=== PATIENT | male | born 1950 | race Caucasian/White ===

== ENCOUNTER 2017-01-29 14:54 | Emergency (ER) | payer MEDICARE | END 2017-01-29 17:05 | disposition home or self-care (01) | LOC: ER1 14:54 | DX: S86.812A Strain of other muscle(s) and tendon(s) at lower leg level, left leg, initial encounter (principal); R60.0 Localized edema; I10 Essential (primary) hypertension; E07.9 Disorder of thyroid, unspecified; Z86.718 Personal history of other venous thrombosis and embolism; Z88.1 Allergy status to other antibiotic agents; W19.XXXA Unspecified fall, initial encounter; Z79.899 Other long term (current) drug therapy | CPT/HCPCS: 73564; 93971; 99283 ==

== ENCOUNTER → 2021-03-20 | Outpatient (CLI) | payer MEDICARE ==
[~2021-03-20] MED LIST: FLEXERIL 10 MG10 MG PO; PERCOCET 5/325 T1 EA PO
== END ==
LOC: US 09:29
DX: K76.0 Fatty (change of) liver, not elsewhere classified (principal); K74.60 Unspecified cirrhosis of liver
CPT/HCPCS: 76700

== ENCOUNTER 2021-08-14 19:18 | Emergency (ER) | payer MEDICARE ==
[2021-08-14 21:38] LABS: HEMOGLOBIN 17.5 gm/dl (14.0-17.5); RED BLOOD COUNT 4.96 M/UL (4.20-5.50); WHITE BLOOD COUNT 13.5 K/UL (4.5-11.0)
[2021-08-15] MEDS ORDERED: OMNICEF 300 MG300 MG PO (02:00)
[2021-08-15] MEDS ORDERED: ZITHROMAX250 MG PO (02:00)
== END 2021-08-15 03:03 | disposition home or self-care (01) ==
LOC: ER1 19:18
PROVIDERS: Physician Assistant Medical
DX: J18.9 Pneumonia, unspecified organism (principal); I12.9 Hypertensive chronic kidney disease with stage 1 through stage 4 chronic kidney disease, or unspecified chronic kidney disease; N18.9 Chronic kidney disease, unspecified; Z88.1 Allergy status to other antibiotic agents; Z20.822 Contact with and (suspected) exposure to COVID-19
CPT/HCPCS: 71045; 80053; 82550; 82553; 83874; 84484; 85025; 85379; 93005; 96374; 99285; J0696; Q9967; U0002

== ENCOUNTER 2021-09-07 01:08 | Emergency (ER) | payer MEDICARE ==
[~2021-09-07 01:08] MED LIST changes: +OMNICEF 300 MG300 MG PO; +ZITHROMAX250 MG PO
[2021-09-07] MEDS ORDERED: LODINE CAP 300300 MG PO (04:57)
[2021-09-07] MEDS ORDERED: PROVENTIL HFA6.7 GM INH (04:57)
== END 2021-09-07 05:01 | disposition home or self-care (01) ==
LOC: ER1 01:08
DX: U07.1 COVID-19 (principal); I10 Essential (primary) hypertension; F41.9 Anxiety disorder, unspecified; Z88.1 Allergy status to other antibiotic agents
CPT/HCPCS: 0240U; 71045; 99283

== ENCOUNTER → 2021-09-09 | Outpatient (CLI) | payer MEDICARE ==
[~2021-09-09] VITALS: Ht 188 cm; Wt 108.0 kg
[~2021-09-09] MED LIST changes: +LODINE CAP 300300 MG PO; +PROVENTIL HFA6.7 GM INH
== END ==
LOC: EROP 12:48
DX: Z23 Encounter for immunization (principal); U07.1 COVID-19; I10 Essential (primary) hypertension
CPT/HCPCS: M0247; Q0247

== ENCOUNTER 2022-02-23 15:57 | Emergency (ER) | payer MEDICARE | END 2022-02-23 19:20 | disposition home or self-care (01) | LOC: ER1 15:57 | DX: S50.01XA Contusion of right elbow, initial encounter (principal); I10 Essential (primary) hypertension; W01.0XXA Fall on same level from slipping, tripping and stumbling without subsequent striking against object, initial encounter; Y92.009 Unspecified place in unspecified non-institutional (private) residence as the place of occurrence of the external cause | CPT/HCPCS: 73080; 99283 ==

== ENCOUNTER → 2022-03-05 | Outpatient (CLI) | payer MEDICARE | LOC: KOH-I 14:39 | DX: M25.562 Pain in left knee (principal); R07.81 Pleurodynia | CPT/HCPCS: 71045; 71101; 73562 ==

== ENCOUNTER → 2022-04-07 | Outpatient (CLI) | payer MEDICARE | LOC: KOH-I 04-03 10:45 | DX: M89.8X5 Other specified disorders of bone, thigh (principal) | CPT/HCPCS: 73721 ==